=== PATIENT | female | born 1960 | race Caucasian/White ===

== ENCOUNTER 2022-09-10 05:39 | Inpatient (IN) | payer OTHER ==
[2022-09-10] MEDS ORDERED: Vancomycin 1 GM VIAL ONE (06:10)
[2022-09-10] MEDS ORDERED: Thrombin 5000 UNITS/5 ML VIAL ONE (06:11)
[2022-09-10] MEDS ORDERED: Bupivacaine HCl 0.5%/Epinephrine 1:200,000/PF 30 ml Vial ONE (06:11)
[2022-09-10] MEDS ORDERED: Fentanyl 250 MCG/5 ML VIAL ONE (06:22)
[2022-09-10] MEDS ORDERED: Albumin 5% 250 ML ONE (06:22)
[2022-09-10] MEDS ORDERED: SUGAMMADEX SODIUM 200 MG/2 ML VIAL ONE (06:22)
[2022-09-10] MEDS ORDERED: Prochlorperazine 10 MG/2 ML VIAL IM PRN (06:32)
[2022-09-10] MEDS ORDERED: diphenhydrAMINE 50 MG/ML VIAL IVP PRN (06:32)
[2022-09-10] MEDS ORDERED: Ondansetron PF 4 MG/2 ML Vial IVP PRN (06:32)
[2022-09-10] MEDS ORDERED: CEFAZOLIN 2 GM VIAL ONE (06:47)
[2022-09-10] MEDS ORDERED: Sodium Chloride 0.9% 100 ML ONE (06:47)
[2022-09-10] MEDS ORDERED: Midazolam HCl 2 mg/2 ml Vial ONE (06:52)
[2022-09-10] MEDS ORDERED: Lidocaine 1% PF 5 ML VIAL ONE (07:10)
[2022-09-10] MEDS ORDERED: Vecuronium 10 MG VIAL ONE (07:10)
[2022-09-10] MEDS ORDERED: Dexamethasone 20 MG/5 ML VIAL ONE (07:10)
[2022-09-10] MEDS ORDERED: PROPOFOL 200 MG/20 ML VIAL ONE (07:10)
[2022-09-10] MEDS ORDERED: Ondansetron PF 4 MG/2 ML Vial ONE ×2 (07:10→10:56)
[2022-09-10] MEDS ORDERED: Phenylephrine 10 MG/ML VIAL ONE (09:32)
[2022-09-10] MEDS ORDERED: fentaNYL 50 mcg/mL 1 mL Vial ONE ×3 (10:56→12:10)
[2022-09-10] MEDS ORDERED: HYDROmorphone 0.5 MG/0.5 ML SYRINGE ONE (11:08)
[2022-09-10] MEDS ORDERED: Promethazine HCl 25 MG/ML VIAL ONE (11:18)
[2022-09-10] MEDS ORDERED: Morphine 4 MG/ML VIAL ONE (11:24)
[2022-09-10] MEDS: Amitriptyline HCl 25 MG TAB PO SCH ×2 (12:44→20:49)
[2022-09-10] MEDS: Sodium Chloride 0.9% 1,000 ML IV SCH (12:44)
[2022-09-10] MEDS: clonazePAM 0.5 MG TAB PO SCH ×2 (12:44→20:49)
[2022-09-10] MEDS: Pregabalin 50 MG CAP PO SCH ×3 (12:44→21:00)
[2022-09-10] MEDS: Morphine 2 MG/ML VIAL SLOW IVP PRN (14:09)
[2022-09-10] MEDS: CEFAZOLIN 2 GM in Sodium Chloride 0.9% 100 ML IVPB SCH (14:09)
[2022-09-10] MEDS: HYDROcodone/Acetaminophen 10/325 mg Tablet PO PRN ×2 (14:10→17:51)
[2022-09-10] MEDS: tiZANidine HCl 4 MG TAB PO PRN (17:51)
[2022-09-10] MEDS: Acetaminophen 325 MG TAB PO PRN (20:49)
[2022-09-10] MEDS: QUEtiapine 300 MG TAB PO SCH (23:39)
[2022-09-11] MEDS: CEFAZOLIN 2 GM in Sodium Chloride 0.9% 100 ML IVPB SCH (00:25)
[2022-09-11] MEDS: HYDROcodone/Acetaminophen 10/325 mg Tablet PO PRN ×4 (00:59→18:19)
[2022-09-11] MEDS: Acetaminophen/Codeine 30-300mg Tablet PO PRN (00:59)
[2022-09-11] MEDS: Morphine 2 MG/ML VIAL SLOW IVP PRN ×5 (04:19→20:34)
[2022-09-11] MEDS: Acetaminophen 325 MG TAB PO PRN (04:23)
[2022-09-11] MEDS: Sodium Chloride 0.9% 1,000 ML IV SCH ×2 (05:36→10:51)
[2022-09-11] MEDS ORDERED: Pregabalin 50 MG CAP PO SCH (07:30)
[2022-09-11] MEDS: clonazePAM 0.5 MG TAB PO SCH ×2 (08:40→20:33)
[2022-09-11] MEDS: Pregabalin 50 MG CAP PO SCH ×3 (08:40→20:33)
[2022-09-11] MEDS: Amitriptyline HCl 25 MG TAB PO SCH ×2 (08:42→20:34)
[2022-09-11 08:57] LABS: #Basophils 0.1 thou/uL (0.0-0.2); #Eosinphils 0.2 thou/uL (0.0-0.7); #Monocytes 1.5 thou/uL (0.11-0.59); #Neutrophils 7.6 thou/uL (1.40-6.50); %Basophils 0.7 % (0.0-1.0); %Eosinophils 1.4 % (0.0-10.0); %Monocytes 11.9 % (0.0-10.0); %Neutrophils 62.5 % (42.0-75.0); Hemoglobin 10.1 g/dL (12.0-16.0); Mean Corpuscular HGB CONC 32.7 g/dL (32.0-36.0); Mean Corpuscular Hemoglobin 28.6 pg (27.0-31.0); Mean Corpuscular Volume 87.5 fl (78.0-98.0); Mean Platelet Volume 8.2 fL (7.4-10.4); Platelet Count 446 10x3/uL (130-400); RBC Distribution Width 17.7 % (11.5-14.5); Red Blood Cell (RBC) Count 3.53 mill/uL (4.20-5.40); White Blood Cell (WBC) Count 12.2 10x3/uL (4.8-10.8)
[2022-09-11 09:25] LABS: Anion Gap 15 mmol/L (10-20); BUN (Urea Nitrogen) 5 mg/dL (9.8-20.1); Calc. Creatinine Clearance 72 mL/min (70-130); Calcium 8.2 mg/dL (7.8-10.44); Carbon Dioxide 19 mmol/L (22-29); Chloride 106 mmol/L (98-107); Estimated GFR 97; Glucose 112 mg/dL (70-105); Potassium 4.2 mmol/L (3.5-5.1); Sodium 136 mmol/L (136-145)
[2022-09-11] MEDS: QUEtiapine 300 MG TAB PO SCH (20:33)
[2022-09-11] MEDS: HYDROcodone/Acetaminophen 7.5/325 mg Tablet PO PRN (23:33)
[2022-09-12] MEDS: Sodium Chloride 0.9% 1,000 ML IV SCH ×2 (00:27→16:57)
[2022-09-12] MEDS: tiZANidine HCl 4 MG TAB PO PRN (03:33)
[2022-09-12] MEDS: HYDROcodone/Acetaminophen 10/325 mg Tablet PO PRN ×4 (03:33→17:12)
[2022-09-12] MEDS: Pregabalin 50 MG CAP PO SCH ×3 (08:12→20:56)
[2022-09-12] MEDS: clonazePAM 0.5 MG TAB PO SCH ×2 (08:13→20:57)
[2022-09-12] MEDS: Amitriptyline HCl 25 MG TAB PO SCH ×2 (08:14→20:56)
[2022-09-12] MEDS: Morphine 2 MG/ML VIAL SLOW IVP PRN ×2 (11:44→20:58)
[2022-09-12] MEDS: Acetaminophen/Codeine 30-300mg Tablet PO PRN (20:57)
[2022-09-12] MEDS: QUEtiapine 300 MG TAB PO SCH (22:44)
[2022-09-13] MEDS: Sodium Chloride 0.9% 1,000 ML IV SCH ×2 (03:11→18:38)
[2022-09-13] MEDS: HYDROcodone/Acetaminophen 10/325 mg Tablet PO PRN (05:01)
[2022-09-13] MEDS: Pregabalin 50 MG CAP PO SCH ×3 (08:43→21:59)
[2022-09-13] MEDS: clonazePAM 0.5 MG TAB PO SCH ×2 (08:44→22:00)
[2022-09-13] MEDS: Amitriptyline HCl 25 MG TAB PO SCH ×2 (08:44→22:00)
[2022-09-13] MEDS ORDERED: Ipratropium/Albuterol 3 ML NEB NEB PRN (09:34)
[2022-09-13] MEDS: HYDROcodone/Acetaminophen 7.5/325 mg Tablet PO PRN ×4 (09:49→23:20)
[2022-09-13] MEDS: cefTRIAXone\\ROCEPHIN 1 GM in Sodium Chloride 0.9% 100 ML IVPB SCH (10:04)
[2022-09-13] MEDS: Cyclobenzaprine 10 MG TAB PO PRN ×2 (12:34→22:00)
[2022-09-13] MEDS: Azithromycin 500 MG in Sodium Chloride 0.9% 250 ML 250 ML IVPB SCH (15:13)
[2022-09-13] MEDS: QUEtiapine 300 MG TAB PO SCH (21:59)
[2022-09-13 22:58] LABS: Lactic Acid 0.9 mmol/L (0.5-2.2)
[2022-09-14 01:18] LABS: Bacteria/HPF 3+ HPF (None Seen); Bilirubin Negative (Negative); Blood, Urine Negative (Negative); CAUTI Indications for Culture Dysuria,urgency,freq; Clarity Turbid (Clear); Glucose, Urine (Dipstick) Normal (Negative); Ketone, Urine Negative (Negative); Leukocyte 75 Leu/uL (Negative); Nitrite Negative (Negative); Protein, Urine (Dipstick) Negative (Neg-Trace); RBC/HPF 0-3 HPF (0-3); Specific Gravity, Urine 1.005 (1.002-1.036); Squamous Epithelial None Seen HPF (0-3); Urobilinogen Normal mg/dL (Less than 2); WBC/HPF 0-3 HPF (0-3); pH, Urine 6.5 (5.0-9.0)
[2022-09-14 01:19] LABS: Urine Culture Reflex No No
[2022-09-14] MEDS: Sodium Chloride 0.9% 1,000 ML IV SCH (03:20)
[2022-09-14 07:07] LABS: #Basophils 0.1 thou/uL (0.0-0.2); %Basophils 0.7 % (0.0-1.0); RBC Distribution Width 16.3 % (11.5-14.5)
[2022-09-14 07:26] LABS: #Eosinphils 0.2 thou/uL (0.0-0.7); #Monocytes 1.4 thou/uL (0.11-0.59); %Lymphocytes 21.7 % (21.0-51.0); %Monocytes 12.5 % (0.0-10.0); %Neutrophils 62.4 % (42.0-75.0); Hemoglobin 10.7 g/dL (12.0-16.0); Mean Corpuscular HGB CONC 33.4 g/dL (32.0-36.0); Mean Corpuscular Hemoglobin 28.5 pg (27.0-31.0); Mean Corpuscular Volume 85.3 fl (78.0-98.0); Mean Platelet Volume 8.8 fL (7.4-10.4); Platelet Count 578 10x3/uL (130-400); Red Blood Cell (RBC) Count 3.75 mill/uL (4.20-5.40); White Blood Cell (WBC) Count 11.2 10x3/uL (4.8-10.8)
[2022-09-14 07:28] LABS: Anion Gap 13 mmol/L (10-20); BUN (Urea Nitrogen) Less than 4 mg/dL (9.8-20.1); Calc. Creatinine Clearance 86 mL/min (70-130); Calcium 8.5 mg/dL (7.8-10.44); Carbon Dioxide 25 mmol/L (22-29); Chloride 100 mmol/L (98-107); Estimated GFR 103; Glucose 96 mg/dL (70-105); Potassium 3.4 mmol/L (3.5-5.1); Sodium 135 mmol/L (136-145)
[2022-09-14 07:31] LABS: ALT (SGPT) 15 U/L (8-55); AST (SGOT) 13 U/L (5-34); Albumin 3.1 g/dL (3.5-5.0); Alkaline Phosphatase 120 U/L (40-110); Anion Gap 12 mmol/L (10-20); BUN (Urea Nitrogen) Less than 4 mg/dL (9.8-20.1); Bilirubin, Direct 0.2 mg/dL (0.1-0.3); Bilirubin, Total 0.3 mg/dL (0.2-1.2); Calc. Creatinine Clearance 87 mL/min (70-130); Calcium 8.5 mg/dL (7.8-10.44); Carbon Dioxide 25 mmol/L (22-29); Chloride 101 mmol/L (98-107); Estimated GFR 103; Glucose 98 mg/dL (70-105); Potassium 3.4 mmol/L (3.5-5.1); Protein, Total 6.1 g/dL (6.0-8.3); Sodium 135 mmol/L (136-145)
[2022-09-14 07:49] LABS: Free T4 (Free Thyroxine) 0.97 ng/dL (0.70-1.48); Thyroid Stimulating Hormone 0.3284 uIU/mL (0.35-4.94)
[2022-09-14 07:50] LABS: Vitamin D, 25 Hydroxy 33.7 ng/ml (> 30.0)
[2022-09-14] MEDS: cefTRIAXone\\ROCEPHIN 1 GM in Sodium Chloride 0.9% 100 ML IVPB SCH (08:52)
[2022-09-14] MEDS: Pregabalin 50 MG CAP PO SCH ×3 (08:53→20:59)
[2022-09-14] MEDS: Amitriptyline HCl 25 MG TAB PO SCH ×2 (08:53→20:58)
[2022-09-14] MEDS: clonazePAM 0.5 MG TAB PO SCH ×2 (08:53→20:59)
[2022-09-14] MEDS: HYDROcodone/Acetaminophen 10/325 mg Tablet PO PRN ×3 (08:55→21:00)
[2022-09-14] MEDS: Azithromycin 500 MG in Sodium Chloride 0.9% 250 ML 250 ML IVPB SCH (10:08)
[2022-09-14] MEDS: Cyclobenzaprine 10 MG TAB PO PRN ×2 (10:09→17:03)
[2022-09-14] MEDS: Acetaminophen/Codeine 30-300mg Tablet PO PRN ×2 (10:11→17:03)
[2022-09-14] MEDS: QUEtiapine 300 MG TAB PO SCH (21:00)
[2022-09-15] MEDS: Acetaminophen/Codeine 30-300mg Tablet PO PRN ×2 (00:26→20:10)
[2022-09-15] MEDS: Cyclobenzaprine 10 MG TAB PO PRN ×2 (00:27→14:47)
[2022-09-15] MEDS: cefTRIAXone\\ROCEPHIN 1 GM in Sodium Chloride 0.9% 100 ML IVPB SCH (08:21)
[2022-09-15] MEDS: clonazePAM 0.5 MG TAB PO SCH ×2 (08:21→20:09)
[2022-09-15] MEDS: Pregabalin 50 MG CAP PO SCH ×3 (08:21→20:09)
[2022-09-15] MEDS: HYDROcodone/Acetaminophen 7.5/325 mg Tablet PO PRN (08:25)
[2022-09-15] MEDS ORDERED: VANCOMYCIN IVPB PRN (11:13)
[2022-09-15] MEDS: Vancomycin HCl 750 MG in Sodium Chloride 0.9% 250 ML 250 ML IVPB SCH ×2 (11:57→20:07)
[2022-09-15] MEDS: HYDROcodone/Acetaminophen 10/325 mg Tablet PO PRN (14:43)
[2022-09-15] MEDS: Amitriptyline HCl 25 MG TAB PO SCH (20:08)
[2022-09-15] MEDS: QUEtiapine 300 MG TAB PO SCH (20:09)
[2022-09-15] MEDS ORDERED: Vancomycin 1 GM in Premix Bag 1 BAG IVPB SCH (21:00)
[2022-09-15] MEDS: Morphine 2 MG/ML VIAL SLOW IVP PRN (22:07)
[2022-09-16] MEDS: Cyclobenzaprine 10 MG TAB PO PRN ×3 (00:52→20:23)
[2022-09-16] MEDS: HYDROcodone/Acetaminophen 7.5/325 mg Tablet PO PRN ×2 (00:53→20:24)
[2022-09-16] MEDS: Vancomycin HCl 750 MG in Sodium Chloride 0.9% 250 ML 250 ML IVPB SCH ×2 (03:41→12:11)
[2022-09-16 06:32] LABS: #Basophils 0.1 thou/uL (0.0-0.2); #Eosinphils 0.4 thou/uL (0.0-0.7); #Monocytes 0.7 thou/uL (0.11-0.59); #Neutrophils 3.8 thou/uL (1.40-6.50); %Basophils 0.7 % (0.0-1.0); %Eosinophils 5.5 % (0.0-10.0); %Lymphocytes 26.3 % (21.0-51.0); %Neutrophils 57.1 % (42.0-75.0); Hemoglobin 9.6 g/dL (12.0-16.0); Mean Corpuscular HGB CONC 33.1 g/dL (32.0-36.0); Mean Corpuscular Hemoglobin 28.2 pg (27.0-31.0); Mean Corpuscular Volume 85.3 fl (78.0-98.0); Mean Platelet Volume 8.6 fL (7.4-10.4); Platelet Count 525 10x3/uL (130-400); RBC Distribution Width 16.2 % (11.5-14.5); White Blood Cell (WBC) Count 6.7 10x3/uL (4.8-10.8)
[2022-09-16 07:14] LABS: Anion Gap 14 mmol/L (10-20); BUN (Urea Nitrogen) Less than 4 mg/dL (9.8-20.1); Calc. Creatinine Clearance 89 mL/min (70-130); Calcium 8.2 mg/dL (7.8-10.44); Carbon Dioxide 23 mmol/L (22-29); Chloride 105 mmol/L (98-107); Estimated GFR 104; Glucose 131 mg/dL (70-105); Potassium 3.2 mmol/L (3.5-5.1); Sodium 139 mmol/L (136-145)
[2022-09-16] MEDS: clonazePAM 0.5 MG TAB PO SCH ×2 (08:29→20:23)
[2022-09-16] MEDS: HYDROcodone/Acetaminophen 10/325 mg Tablet PO PRN ×3 (08:29→16:57)
[2022-09-16] MEDS: Pregabalin 50 MG CAP PO SCH ×3 (08:30→20:23)
[2022-09-16] MEDS ORDERED: Potassium Bicarbonate/Cit Ac 20 MEQ TAB PO SCH (09:15)
[2022-09-16 11:35] LABS: Vancomycin, Trough 12.3 ug/mL
[2022-09-16] MEDS: Vancomycin 1 GM in Premix Bag 1 BAG IVPB SCH (14:58)
[2022-09-16] MEDS: Amitriptyline HCl 25 MG TAB PO SCH (20:22)
[2022-09-16] MEDS: QUEtiapine 300 MG TAB PO SCH (20:23)
[2022-09-17] MEDS: Vancomycin 1 GM in Premix Bag 1 BAG IVPB SCH (02:08)
[2022-09-17 06:03] LABS: #Basophils 0.1 thou/uL (0.0-0.2); #Eosinphils 0.3 thou/uL (0.0-0.7); #Monocytes 0.4 thou/uL (0.11-0.59); #Neutrophils 2.6 thou/uL (1.40-6.50); %Basophils 1.4 % (0.0-1.0); %Eosinophils 5.1 % (0.0-10.0); %Lymphocytes 31.4 % (21.0-51.0); %Monocytes 7.9 % (0.0-10.0); %Neutrophils 53.4 % (42.0-75.0); Hemoglobin 10.4 g/dL (12.0-16.0); Mean Corpuscular HGB CONC 31.8 g/dL (32.0-36.0); Mean Platelet Volume 8.3 fL (7.4-10.4); Platelet Count 508 10x3/uL (130-400); RBC Distribution Width 16.6 % (11.5-14.5); Red Blood Cell (RBC) Count 3.71 mill/uL (4.20-5.40); White Blood Cell (WBC) Count 4.9 10x3/uL (4.8-10.8)
[2022-09-17 06:24] LABS: Anion Gap 13 mmol/L (10-20); BUN (Urea Nitrogen) Less than 4 mg/dL (9.8-20.1); Calc. Creatinine Clearance 90 mL/min (70-130); Calcium 8.4 mg/dL (7.8-10.44); Carbon Dioxide 24 mmol/L (22-29); Chloride 104 mmol/L (98-107); Estimated GFR 104; Glucose 100 mg/dL (70-105); Potassium 3.7 mmol/L (3.5-5.1); Sodium 137 mmol/L (136-145)
[2022-09-17 07:19] LABS: Manual Diff?? YES; Mean Corpuscular Volume 88.1 fl (78.0-98.0)
[2022-09-17 08:09] VITALS: TEMP 98.7
[2022-09-17] MEDS: Pregabalin 50 MG CAP PO SCH ×2 (08:18→14:47)
[2022-09-17] MEDS: Morphine 2 MG/ML VIAL SLOW IVP PRN (08:19)
[2022-09-17] MEDS: clonazePAM 0.5 MG TAB PO SCH (08:19)
[2022-09-17 08:45] LABS: Eosinophils 6 % (0-10); Lymphocytes 30 % (21-51); Monocytes 7 % (0-10); Neutrophil 54 % (42-75); Reactive Lymphocytes 1 % (0-10)
[2022-09-17 08:47] LABS: Anisocytosis SLIGHT = 6-15 cells (100X) (0-5/hpf); Platelet Adequacy Comment Platelets Increased; Polychromasia SLIGHT = 2-3 cells (100X) (0-2/hpf)
[2022-09-17 08:53] LABS: Large Platelets SLIGHT (None Seen)
[2022-09-17] MEDS: Cyclobenzaprine 10 MG TAB PO PRN (10:21)
[2022-09-17] MEDS: HYDROcodone/Acetaminophen 10/325 mg Tablet PO PRN ×2 (10:21→14:47)
[2022-09-17 12:06] VITALS: BP 135/84
== END 2022-09-17 15:00 | DRG 459 ==
LOC: SDC 05:39 → SURG A 06:32 → OBSVTOIN 09-11 18:10 → T4-B 09-13 23:53
PROVIDERS: ADMIT Neurological Surgery; ATTEND Neurological Surgery
PROC: 0SG1071 Fusion of 2 or more Lumbar Vertebral Joints with Autologous Tissue Substitute, Posterior Approach, Posterior Column, Open Approach (ICD-10-PCS; principal; 2022-09-10)
PROC: 01NB0ZZ Release Lumbar Nerve, Open Approach (ICD-10-PCS; 2022-09-10)
PROC: 00NY0ZZ Release Lumbar Spinal Cord, Open Approach (ICD-10-PCS; 2022-09-10)
DX: M48.062 Spinal stenosis, lumbar region with neurogenic claudication (principal); J18.9 Pneumonia, unspecified organism; L03.114 Cellulitis of left upper limb; F41.9 Anxiety disorder, unspecified; I10 Essential (primary) hypertension; M81.0 Age-related osteoporosis without current pathological fracture; I25.10 Atherosclerotic heart disease of native coronary artery without angina pectoris; F31.9 Bipolar disorder, unspecified; M19.90 Unspecified osteoarthritis, unspecified site; E87.6 Hypokalemia; R53.81 Other malaise; R09.02 Hypoxemia; Z87.81 Personal history of (healed) traumatic fracture; Z90.710 Acquired absence of both cervix and uterus; Z88.2 Allergy status to sulfonamides; Z88.8 Allergy status to other drugs, medicaments and biological substances; Z79.899 Other long term (current) drug therapy
CPT/HCPCS: 36415; 36416; 71045; 80048; 80076; 80202; 81001; 82306; 83605; 83970; 84146; 84439; 84443; 85025; 87081; 93970; C1713; C1889; J0456; J0696; J1100; J1170; J2250; J2270; J2272; J2370; J2405; J2550; J2704; J3010; J3370; J3370-JW; J3490; J7050; P9045